=== PATIENT | male | born 1985 | race Two or more races ===

== ENCOUNTER 2018-07-21 18:24 | Emergency (ER) | payer SELFPAY ==
[~2018-07-21] VITALS: Ht 182.9 cm; Wt 79.8 kg
[2018-07-21 19:24] VITALS: BP 148/87
[2018-07-21] MEDS ORDERED: HYDROcodone/APAP 5/325MG 1 TAB TABLET PO ONE (20:30)
--- NOTE | 2018-07-21 21:14 | PHYS DOC ---
Past Medical History Past Medical History: No Pertinent History Past Surgical History: No Surgical History Alcohol Use: Occasionally Drug Use: None Adult General Chief Complaint Chief Complaint: HAND PROBLEM HPI HPI Patient is a 33 year old who presents to the emergency department with complaints of left hand third digit pain after shutting his finger in a door at approximately 1745. Patient denies any bleeding, numbness, tingling, or decreased range of motion of the finger. Currently he reports his pain as a 10 out of 10 on the pain scale. He did not take anything for relief of this pain prior to coming to the emergency department. Review of Systems Review of Systems Constitutional: Denies fever or chills [] Musculoskeletal: Reports left hand third digit pain after shutting his finger in a door Integument: Denies rash or skin lesions [] Neurologic: Denies focal weakness or sensory changes [] Current Medications Current Medications Current Medications Medications (Trade) Dose Ordered Sig/Fiona Start Time Stop Time Status Last Admin Dose Admin Acetaminophen/ Hydrocodone Bitart (Lortab 5/325) 1 tab 1X ONCE 07/21/18 20:30 07/21/18 20:31 DC 07/21/18 20:19 1 TAB Allergies Allergies Allergies Coded Allergies Type Severity Reaction Last Updated Verified No Known Drug Allergies 07/21/18 No Physical Exam Physical Exam Constitutional: Well developed, well nourished, no acute distress, non-toxic appearance. [] HENT: Normocephalic, atraumatic, bilateral external ears normal, nose normal. [] Eyes: normal Skin: Warm, dry, no erythema, no rash. [] Extremities: No cyanosis, no clubbing, ROM intact, 1+ edema and tenderness to distal end of L hand 3rd digit, 2 mm subungual hematoma present, no obvious deformity Neurologic: Alert and oriented X 3, normal motor function, normal sensory function, no focal deficits noted. [] Psychologic: Affect normal, judgement normal, mood normal. [] Current Patient Data Vital Signs Vital Signs Date Time Temp Pulse Resp B/P (MAP) Pulse Ox O2 Delivery O2 Flow Rate FiO2 07/21/18 19:24 98.7 82 18 148/87 (107) 97 Room Air 98.7 EKG EKG [] Radiology/Procedures Radiology/Procedures X-ray negative read by Dr. Pisano[] Course & Med Decision Making Course & Med Decision Making Pertinent Labs and Imaging studies reviewed. (See chart for details) Patient is a 33-year-old male who presented to the emergency room with complaints of left third digit pain and swelling after smashing his finger in a door at approximately 1745. His vital signs were stable in the emergency department, x-ray was negative for any acute dislocation or fracture. Clinically he presents as a crush injury of the left hand third digit, treated as such. Patient was given 1 hydrocodone 5/ 325 mg tablet in the emergency department, an aluminum finger splint was applied. Patient verbalized an understanding of home care, medications, follow- up, and return to ED instructions and was in agreement with the plan of care. Attending Physician Attestation: I agree with the documentation above. DO Shanell Engel Disclaimer Dragon Disclaimer This electronic medical record was generated, in whole or in part, using a voice recognition dictation system. Departure Departure Impression: Primary Impression: Crushing injury of finger of left hand Disposition: 01 HOME, SELF-CARE Condition: STABLE Referrals: NO PCP (PCP) Patient Instructions: Crush Injury, Fingers or Toes, [id number] Additional Instructions: May take Tylenol or ibuprofen as needed for pain. Recommend application of ice, elevation, and rest of affected extremity. Wear the splint that was placed until follow up with your primary care doctor in 1-2 days.. Return to the ER if your symptoms worsen. LISA HEART APRN Jul 21, 2018 21:14 LAYNE PISANO DO Jul 27, 2018 06:31
--- NOTE | 2018-07-21 22:24 | RAD ---
Three views Left finger: Clinical History: Pain after slammed door on fingers. Technique: AP view of the hand, as well as lateral and oblique collimated views of the third finger were obtained. Comparison: None. Findings: The visualized osseous structures appear normal. Impression: No acute findings. Electronically signed by: Vineet Ellison III, MD (07/21/2018 10:21 PM) [facility]
== END 2018-07-21 21:17 | disposition home or self-care (01) ==
LOC: ER 18:24
DX: S67.193A Crushing injury of left middle finger, initial encounter (principal); W23.1XXA Caught, crushed, jammed, or pinched between stationary objects, initial encounter; Y93.89 Activity, other specified; Y92.89 Other specified places as the place of occurrence of the external cause; Y99.8 Other external cause status
CPT/HCPCS: 29130; 73140; 99284

== ENCOUNTER 2019-01-12 18:29 | Emergency (ER) | payer SELFPAY ==
[~2019-01-12] VITALS: Ht 182.9 cm; Wt 74.8 kg
--- NOTE | 2019-01-12 19:14 | PHYS DOC ---
Past Medical History Past Medical History: No Pertinent History (JOSÉ URBAN APRN) Past Surgical History: No Surgical History (JOSÉ URBAN APRN) Alcohol Use: Occasionally Drug Use: None (JOSÉ URBAN APRN) Adult General Chief Complaint Chief Complaint: FOOT INJURY PAIN HPI HPI Patient is a 33 year old male who presents with was playing soccer and was running and somehow hurt his top of his right foot. Patient has a large egg- sized lump to the top of his right foot. (JOSÉ URBAN APRN) Review of Systems Review of Systems Constitutional: Denies fever or chills [] Eyes: Denies change in visual acuity, redness, or eye pain [] HENT: Denies nasal congestion or sore throat [] Respiratory: Denies cough or shortness of breath [] Cardiovascular: No additional information not addressed in HPI [] GI: Denies abdominal pain, nausea, vomiting, bloody stools or diarrhea [] : Denies dysuria or hematuria [] Musculoskeletal: Top of right foot bump from injury. Denies back pain or joint pain [] Integument: Denies rash or skin lesions [] Neurologic: Denies headache, focal weakness or sensory changes [] All other systems were reviewed and found to be within normal limits, except as documented in this note. (JOSÉ URBAN APRN) Current Medications Current Medications Current Medications Medications (Trade) Dose Ordered Sig/Fiona Start Time Stop Time Status Last Admin Dose Admin Acetaminophen/ Hydrocodone Bitart (Lortab 5/325) 1 tab 1X ONCE 01/12/19 19:15 01/12/19 19:16 DC 01/12/19 19:15 1 TAB (ALEM PARKS MD) Allergies Allergies Allergies Coded Allergies Type Severity Reaction Last Updated Verified No Known Drug Allergies 07/21/18 No (ALEM PARKS MD) Physical Exam Physical Exam Constitutional: Well developed, well nourished, no acute distress, non-toxic appearance. [] HENT: Normocephalic, atraumatic, bilateral external ears normal, oropharynx moist, no oral exudates, nose normal. [] Eyes: PERRLA, EOMI, conjunctiva normal, no discharge. [] Neck: Normal range of motion, no tenderness, supple, no stridor. [] Cardiovascular:Heart rate regular rhythm, no murmur [] Lungs & Thorax: Bilateral breath sounds clear to auscultation [] Abdomen: Bowel sounds normal, soft, no tenderness, no masses, no pulsatile masses. [] Skin: Warm, dry, no erythema, no rash. [] Back: No tenderness, no CVA tenderness. [] Extremities: . Anterior Right foot tenderness, no cyanosis, no clubbing, ROM intact, no edema. [] Neurologic: Alert and oriented X 3, normal motor function, normal sensory function, no focal deficits noted. [] Psychologic: Affect normal, judgement normal, mood normal. [] (JOSÉ URBAN APRN) Current Patient Data Vital Signs Vital Signs Date Time Temp Pulse Resp B/P (MAP) Pulse Ox O2 Delivery O2 Flow Rate FiO2 01/12/19 19:38 99.9 97 20 118/72 (87) 97 Room Air 99.9 (ALEM PARKS MD) EKG EKG [] (JOSÉ URBAN APRN) Radiology/Procedures Radiology/Procedures Right foot (JOSÉ URBAN APRN) Course & Med Decision Making Course & Med Decision Making Patient is a 33 year old male who presents with was playing soccer and was running and somehow hurt his top of his right foot. Patient has a large egg- sized lump to the top of his right foot. The raised lump is skin-colored. It is tender to palpation. Patient can wiggle toes but is very painful. Patient can slightly been toes but states is too painful. The pain does not radiate. Rates pain 10 out of 10. It isn't sharp achy feeling. Patient's pain does not radiate up the leg or into the ankle. Patient has intact range of motion of the ankle and the knee. There is no other swelling to the foot other than the raised area. There is no deformity that can be seen or felt. There are no abrasions or lacerations. Cap refill less than 3 seconds. There is no tenderness to the ankle or fibular tibia. Patient is given ice pack, [place] in the ED. X-ray shows no obvious acute findings and was read by Dr. Parks. Patient to get an Carlos wrap, ice and elevation and follow-up with orthopedics if needed. He should use crutches for the next week and be nonweightbearing. (JOSÉ URBAN APRN) Course & Med Decision Making Staff Physician Addendum: I was working in the ER during the course of this patient's visit. I was available for consultation as needed, but I was not directly involved in the care of this patient. (ALEM PARKS MD) Dragon Disclaimer Dragon Disclaimer This electronic medical record was generated, in whole or in part, using a voice recognition dictation system. (JOSÉ URBAN APRN) Departure Departure Impression: Primary Impression: Foot contusion Additional Impression: Foot sprain Disposition: HOME, SELF-CARE Condition: STABLE Referrals: NO PCP (PCP) IAM HUSAIN II, MD Patient Instructions: Foot Contusion, Foot Sprain Additional Instructions: Jennifer daly [facility] orthopedic if not better in a week. Ice and Elevation, non- weight bearing and use crutches. Scripts Hydrocodone/Apap 5-325 (NORCO 5-325 TABLET) 1 Each Tablet 1 TAB PO PRN Q6HRS PRN for PAIN, #8 TAB 0 Refills Prov: JOSÉ URBAN APRN 01/12/19 Ibuprofen (IBUPROFEN) 600 Mg Tablet 600 MG PO PRN Q6HRS PRN for INFLAMMATION, #15 TAB Prov: JOSÉ URBAN APRN 01/12/19 Problem Qualifiers Primary Impression: Foot contusion Encounter type: initial encounter Laterality: right Qualified Codes: S90.31XA - Contusion of right foot, initial encounter Additional Impression: Foot sprain Encounter type: initial encounter Laterality: right Qualified Codes: S93.601A - Unspecified sprain of right foot, initial encounter JOSÉ URBAN APRN Jan 12, 2019 19:14 ALEM PARKS MD Jan 13, 2019 21:08
[2019-01-12] MEDS ORDERED: HYDROcodone/APAP 5/325MG 1 TAB TABLET PO ONE (19:15)
[2019-01-12 19:38] VITALS: BP 118/72
[2019-01-12] MEDS ORDERED: HYDR-3164 PO (20:47)
[2019-01-12] MEDS ORDERED: IBUP-1007 PO (20:47)
--- NOTE | 2019-01-12 22:17 | RAD ---
Examination: FOOT RIGHT 3V History: LATERAL INJURY WHILE PLAYING SOCCER Comparison/Correlation: None Findings: Three-view right foot x-ray exam was performed. Avulsion fracture involving the navicular bone at the dorsal aspect is present with very minimal displacement. Significant soft tissue swelling at the dorsal aspect of the talonavicular joint region is noted. No additional fractures identified. Impression: Avulsion fracture at the dorsal aspect of the navicular bone. Electronically signed by: Fabricio Munson MD (01/12/2019 10:14 PM) [facility]
== END 2019-01-12 20:58 | disposition home or self-care (01) ==
LOC: ER 18:29
DX: S93.691A Other sprain of right foot, initial encounter (principal); X58.XXXA Exposure to other specified factors, initial encounter; Y93.66 Activity, soccer; Y92.89 Other specified places as the place of occurrence of the external cause; Y99.8 Other external cause status
CPT/HCPCS: 73630; 99283